=== PATIENT | male | born 1965 | race Caucasian/White ===

== ENCOUNTER 2016-12-31 14:14 | Emergency (ER) | payer OTHER ==
[~2016-12-31] VITALS: Ht 170.2 cm; Wt 74.4 kg
[~2016-12-31 14:14] MED LIST: ASPIR-TRIN325 M1 PO; ATARAX; ATARAX,VISTARIL25 M1 PO; ATARAX,VISTARIL25 MG; Atarax,Vistaril PO; BUSPAR10 M1; Buspar PO; CELEXA; CELEXA40 MG PO; CITALOPRAM HBR40 M1; CLONAZEPAM1 MG PO; Ecotrin PO; GABAPENTIN400 MG PO; GOLDENSEAL325 MG PO; GREEN TEA1 CAPSULE PO; KLONOPIN1 MG PO; LAMICTAL25 MG PO; LEXAPRO10 MG PO; NEURONTIN400 MG PO; PRILOSEC10 MG PO; SEROQUEL; SEROQUEL XR150 MG PO; SEROQUEL100 MG PO; TRAZODONE HCL50 MG PO; TRICOR48 MG PO; VENTOLIN HFA18 GM IH; ZOFRAN ODT4 MG PO; celeXA PO
[2016-12-31 15:23] VITALS: BP 129/87
== END 2016-12-31 15:24 | disposition home or self-care (01) ==
LOC: EME 14:14
DX: S00.83XA Contusion of other part of head, initial encounter (principal); Y04.8XXA Assault by other bodily force, initial encounter; Y07.9 Unspecified perpetrator of maltreatment and neglect; R73.03 Prediabetes; F17.200 Nicotine dependence, unspecified, uncomplicated; Z88.0 Allergy status to penicillin
CPT/HCPCS: 99281; 99283